=== PATIENT | female | born 1975 | race Caucasian/White ===

== ENCOUNTER 2018-01-08 19:55 | Emergency (ER) | payer SELFPAY | END 2018-01-08 23:01 | disposition home or self-care (01) | LOC: D.ER 19:55 | DX: L03.114 Cellulitis of left upper limb (principal); L03.113 Cellulitis of right upper limb; B00.9 Herpesviral infection, unspecified; B20 Human immunodeficiency virus [HIV] disease; I10 Essential (primary) hypertension; F17.200 Nicotine dependence, unspecified, uncomplicated ==

== ENCOUNTER 2019-04-19 00:27 | Emergency (ER) | payer SELFPAY ==
[~2019-04-19] VITALS: Ht 170.2 cm; Wt 90.9 kg
[2019-04-19 00:31] VITALS: Ht 170.2 cm; Wt 90.9 kg
[2019-04-19] MEDS ORDERED: ELAVIL (00:33)
[2019-04-19] MEDS ORDERED: BACTRIM 400-801 TAB PO (00:33)
[2019-04-19] MEDS ORDERED: ZOVIRAX400 MG PO (00:33)
[2019-04-19] MEDS ORDERED: LISINOPRIL (00:33)
[2019-04-19 01:07] LABS: BASOPHILS 0.4 % (0-2); EOSINOPHILS 1.8 % (0-7); HEMATOCRIT 39.5 % (36.0-48.0); HEMOGLOBIN 13.1 g/dL (12-16); LYMPHOCYTES 35.7 % (15-50); MCH 32.4 pg (26.0-34.0); MCHC 33.2 g/dL (31.0-37.0); MCV 97.8 fL (80.0-100.0); MEAN PLATELET VOLUME 9.9 fL (7.4-10.4); MONOCYTES 11.8 % (2-11); NEUTROPHILS 50.3 % (40-80); PLATELET COUNT 232 10x3/uL (130-400); RBC 4.04 10x6/uL (4.00-5.40); RDW 12.6 % (11.5-14.5); WBC 5.6 10x3/uL (4.8-10.8)
[2019-04-19 01:25] LABS: ALBUMIN 3.8 g/dL (3.4-5.0); ANION GAP 16.5 mmol/L (8-16); BILIRUBIN - TOTAL 0.3 mg/dL (0.2-1.3); CALCIUM 8.9 mg/dL (8.5-10.1); CARBON DIOXIDE 24.6 mmol/L (21.0-32.0); CREATININE - SERUM 1.2 mg/dL (0.6-1.3); POTASSIUM - SERUM 4.1 mmol/L (3.5-5.1); PROTEIN - SERUM 7.8 g/dL (6.4-8.2); URIC ACID 4.4 mg/dL (2.6-7.2)
[2019-04-19 02:26] VITALS: BP 115/78
== END 2019-04-19 02:26 | disposition home or self-care (01) ==
LOC: D.ER 00:27
PROVIDERS: Family Medicine
DX: S90.122A Contusion of left lesser toe(s) without damage to nail, initial encounter (principal); W22.8XXA Striking against or struck by other objects, initial encounter; Y93.89 Activity, other specified; Y92.89 Other specified places as the place of occurrence of the external cause; B20 Human immunodeficiency virus [HIV] disease

== ENCOUNTER 2020-03-06 12:47 | Observation (INO) | payer MEDICAID ==
[~2020-03-06] VITALS: Ht 170.2 cm; Wt 94.0 kg
[~2020-03-06 12:47] MED LIST: BACTRIM 400-801 TAB PO; ELAVIL; LISINOPRIL; ZOVIRAX400 MG PO
[2020-03-06] MEDS ORDERED: OMEPRAZOLE20 M1 PO (12:51)
[2020-03-06] MEDS ORDERED: VITAMIN B-121000 MCG PO (12:52)
[2020-03-06] MEDS ORDERED: ZOVIRAX200 MG PO (12:52)
[2020-03-06] MEDS ORDERED: LISINOPRIL-HCT1 EAC7 PO (12:53)
[2020-03-06] MEDS ORDERED: CARAFATE1 G PO (12:53)
[2020-03-06] MEDS ORDERED: TIVICAY50 MG PO (12:54)
[2020-03-06] MEDS ORDERED: ZIAGEN300 MG (12:54)
[2020-03-06] MEDS ORDERED: EPIVIR300 MG PO (12:54)
[2020-03-06] MEDS ORDERED: ACETAMINOPHEN325 MG (12:55)
[2020-03-06 13:27] LABS: BASOPHILS 0.4 % (0-2); EOSINOPHILS 2.3 % (0-7); HEMATOCRIT 37.8 % (36.0-48.0); HEMOGLOBIN 12.4 g/dL (12-16); IMMATURE GRANULOCYTES 0.3 % (0-5); LYMPHOCYTES 22.4 % (15-50); MCH 30.8 pg (26.0-34.0); MCHC 32.8 g/dL (31.0-37.0); MCV 93.8 fL (80.0-100.0); MEAN PLATELET VOLUME 10.5 fL (7.4-10.4); MONOCYTES 6.4 % (2-11); NEUTROPHILS 68.2 % (40-80); PLATELET COUNT 250 10x3/uL (130-400); RBC 4.03 10x6/uL (4.00-5.40); RDW 12.7 % (11.5-14.5); WBC 7.4 10x3/uL (4.8-10.8)
[2020-03-06 13:52] LABS: ALBUMIN 3.7 g/dL (3.4-5.0); ALKALINE PHOSPHATASE 100 U/L (30-120); ALT (SGPT) 34 U/L (10-68); BILIRUBIN - TOTAL 0.44 mg/dL (0.2-1.3); CALC OSMOLALITY 285 mosm/kg (275-300); CALCIUM 8.7 mg/dL (8.5-10.1); CARBON DIOXIDE 27.4 mmol/L (21.0-32.0); CHLORIDE - SERUM 106 mmol/L (98-107); CKMB 3.4 U/L (0.0-3.6); CREATINE KINASE 612 UL (21-215); CREATININE - SERUM 1.3 mg/dL (0.6-1.3); GLUCOSE 131 mg/dL (74-106); MAGNESIUM - SERUM 2.1 mg/dL (1.8-2.4); PROTEIN - SERUM 7.8 g/dL (6.4-8.2); SODIUM 140 mmol/L (136-145); UREA NITROGEN 27 mg/dL (7-18); eGFR NON AFRICAN AMERICAN 47 mL/min (90-120)
[2020-03-06 13:53] LABS: TROPONIN-I < 0.017 ng/mL (0.000-0.060)
[2020-03-06 13:59] LABS: POTASSIUM - SERUM 2.6 mmol/L (3.5-5.1)
[2020-03-06 14:09] VITALS: BP 123/68
[2020-03-06 15:29] LABS: BILIRUBIN NEGATIVE (NEGATIVE); GLUCOSE NEGATIVE (NEGATIVE); KETONE NEGATIVE (NEGATIVE); NITRITE NEGATIVE (NEGATIVE); UROBILINOGEN NORMAL (NORMAL)
[2020-03-06 15:30] LABS: BACTERIA MANY /hpf (NEGATIVE); EPITHELIAL CELLS OCC /hpf (0-5); RED CELLS - URINE 0-5 /hpf (0-5)
[2020-03-06 15:31] VITALS: BP 117/65
[2020-03-06 15:38] LABS: UDS - AMPHET POSITIVE QUAL (NEGATIVE); UDS - BARB NEGATIVE QUAL (NEGATIVE); UDS - BENZO POSITIVE QUAL (NEGATIVE); UDS - COCAINE NEGATIVE QUAL (NEGATIVE); UDS - OPIATE NEGATIVE QUAL (NEGATIVE); UDS - PCP NEGATIVE QUAL (NEGATIVE); UDS - THC POSITIVE QUAL (NEGATIVE)
--- NOTE | 2020-03-06 16:41 | NUR ---
PT LAYING IN BED. NO DISTRESS NOTED COLOR WNL FOR RACE. RESPIRATIONS ARE EVEN AND UNLABORED. WILL CONTINUE TO MONITOR.
[2020-03-06 18:29] VITALS: BP 131/87; Ht 170.2 cm; Wt 94.0 kg
[2020-03-06 20:00] VITALS: BP 130/80
[2020-03-06 20:21] LABS: ANION GAP 13.3 mmol/L (8-16); CARBON DIOXIDE 23.8 mmol/L (21.0-32.0)
[2020-03-06 20:22] LABS: CREATININE - SERUM 0.9 mg/dL (0.6-1.3); POTASSIUM - SERUM 4.1 mmol/L (3.5-5.1)
[2020-03-07] VITALS: BP 126/78
--- NOTE | 2020-03-07 01:45 | NUR ---
ALERT AND ORENTED X4 ABLE TO VOICE NEEDS AND WANTS TO STAFF. IV TO RIGHT HAND WITH NS PER ORDERS, CALL LIGHT AND WATTER IN REACH.
[2020-03-07 04:00] VITALS: BP 114/76
[2020-03-07 06:56] LABS: ALBUMIN 2.7 g/dL (3.4-5.0); ALKALINE PHOSPHATASE 76 U/L (30-120); ALT (SGPT) 22 U/L (10-68); BILIRUBIN - TOTAL 0.16 mg/dL (0.2-1.3); CALC OSMOLALITY 288 mosm/kg (275-300); CALCIUM 7.9 mg/dL (8.5-10.1); CARBON DIOXIDE 23.9 mmol/L (21.0-32.0); CHLORIDE - SERUM 113 mmol/L (98-107); CKMB 1.6 U/L (0.0-3.6); CREATINE KINASE 312 UL (21-215); CREATININE - SERUM 0.7 mg/dL (0.6-1.3); GLUCOSE 95 mg/dL (74-106); MAGNESIUM - SERUM 1.9 mg/dL (1.8-2.4); POTASSIUM - SERUM 3.8 mmol/L (3.5-5.1); SODIUM 144 mmol/L (136-145); TROPONIN-I < 0.017 ng/mL (0.000-0.060); UREA NITROGEN 17 mg/dL (7-18); eGFR NON AFRICAN AMERICAN > 90 mL/min (90-120)
[2020-03-07 07:11] LABS: BASOPHILS 0.5 % (0-2); EOSINOPHILS 4.4 % (0-7); HEMATOCRIT 32.6 % (36.0-48.0); HEMOGLOBIN 10.2 g/dL (12-16); IMMATURE GRANULOCYTES 0.2 % (0-5); MCHC 31.3 g/dL (31.0-37.0); MEAN PLATELET VOLUME 10.4 fL (7.4-10.4); MONOCYTES 10.3 % (2-11); NEUTROPHILS 39.6 % (40-80); PLATELET COUNT 214 10x3/uL (130-400); RDW 13.2 % (11.5-14.5)
[2020-03-07 07:12] LABS: MCV 95.9 fL (80.0-100.0); WBC 4.3 10x3/uL (4.8-10.8)
--- NOTE | 2020-03-07 09:30 | NUR ---
DISCHARGE PAPERS AND INSTRUCTION GIVEN TO PT QUESTIONS ANSERED, IV REMOVED TIP INTACT, DC WITH BELONGINGS AND MEDICATIONS
== END 2020-03-07 09:52 | disposition home or self-care (01) ==
LOC: D.ER 12:47 → OBSVTIME 16:26 → D.MS 16:26
PROVIDERS: Family Medicine; ADMIT Legal Medicine; ATTEND Legal Medicine
DX: M62.82 Rhabdomyolysis (principal); E87.6 Hypokalemia; F15.90 Other stimulant use, unspecified, uncomplicated; F12.90 Cannabis use, unspecified, uncomplicated; B20 Human immunodeficiency virus [HIV] disease; I10 Essential (primary) hypertension